=== PATIENT | female | born 1970 | race Caucasian/White ===

== ENCOUNTER 2017-07-11 17:22 | Emergency (ER) | payer OTHER ==
[2017-07-11 17:26] VITALS: BP 100/64; TEMP 97.7; O2SAT 98
[2017-07-11 17:28] VITALS: BMI 33.2
[2017-07-11 17:31] VITALS: PULSE 78; RESP 18
--- NOTE | 2017-07-11 17:43 | ED PDOC ---
Arrival/HPI - General Chief Complaint: Upper Extremity Problem/Injury Time Seen by Provider: 07/11/17 17:26 Historian: Patient - History of Present Illness Narrative History of Present Illness (Text): 07/11/17 17:40 46yo female with history of chronic lower back pain and right arm pain present with complaint of lower back pain and right shoulder pain. She reports lower back pain secondary to LS stenosis. Pain is typical of her previous pain. States she was getting epidural injection and PT while in [place]. she has been here for 3months now without medication. Pain is worse with right arm abduction and back pain with movement, flexion. She denies abdominal pain, urinary/fecal incontinence, chest pain, focal weakness, saddle anesthesia, tearing/ripping upper back pain, urinary symptoms, any other complaint. Past Medical History - Provider Review Nursing Documentation Reviewed: Yes - Cardiac Hx Cardiac Disorders: No - Pulmonary Hx Respiratory Disorders: Yes Hx Asthma: Yes - Neurological Hx Neurological Disorder: No - HEENT Hx HEENT Disorder: No - Renal Hx Renal Disorder: No - Endocrine/Metabolic Hx Endocrine Disorders: No - Hematological/Oncological Hx Blood Disorders: No - Integumentary Hx Dermatological Disorder: No - Musculoskeletal/Rheumatological Hx Musculoskeletal Disorders: Yes - Gastrointestinal Hx Gastrointestinal Disorders: No - Genitourinary/Gynecological Hx Genitourinary Disorders: No - Psychiatric Hx Psychophysiologic Disorder: No Hx Substance Use: No - Surgical History Hx Cholecystectomy: Yes Family/Social History - Physician Review Nursing Documentation Reviewed: Yes Family/Social History: Unknown Family HX Smoking Status: Never Smoked Hx Alcohol Use: No Hx Substance Use: No Allergies/Home Meds Allergies/Adverse Reactions: Allergies shellfish derived Allergy (Verified 07/11/17 17:26) ANAPHYLAXIS Home Medications: Home Meds Medication Instructions Recorded Confirmed No Known Home Med 07/11/17 07/11/17 Review of Systems - Physician Review All systems were reviewed & negative as marked: Yes - Review of Systems Constitutional: Normal Eyes: Normal ENT: Normal Respiratory: Normal Cardiovascular: Normal Gastrointestinal: Normal Genitourinary Female: Normal Musculoskeletal: Arthralgias (right shoulder pain), Back Pain Skin: Normal Neurological: Normal Endocrine: Normal Hemo/Lymphatic: Normal Psychiatric: Normal Physical Exam Vital Signs Reviewed: Yes Vital Signs Temp Pulse Resp BP Pulse Ox 07/11/17 17:28 97.7 F 78 18 100/64 98 07/11/17 17:26 97.7 F 76 19 100/64 98 Temperature: Afebrile Blood Pressure: Normal Pulse: Regular Respiratory Rate: Normal Appearance: Positive for: Well-Appearing, Non-Toxic, Comfortable Pain Distress: None Mental Status: Positive for: Alert and Oriented X 3 - Systems Exam Head: Present: Atraumatic, Normocephalic Pupils: Present: PERRL Extroacular Muscles: Present: EOMI Conjunctiva: Present: Normal Mouth: Present: Moist Mucous Membranes Neck: Present: Normal Range of Motion Respiratory/Chest: Present: Clear to Auscultation, Good Air Exchange. No: Respiratory Distress, Accessory Muscle Use Cardiovascular: Present: Regular Rate and Rhythm, Normal S1, S2. No: Murmurs Abdomen: Present: Normal Bowel Sounds. No: Tenderness, Distention, Peritoneal Signs Back: No: CVA Tenderness, Midline Tenderness, Paraspinal Tenderness, Pain with Leg Raise Upper Extremity: Present: NORMAL PULSES, Tenderness (Right AC joint), Neurovascularly Intact. No: Cyanosis, Edema, Normal ROM (Limited on abdution up to [address] secondary to pain), Swelling Lower Extremity: Present: Normal Inspection. No: Edema Neurological: Present: GCS=15, CN II-XII Intact, Speech Normal, Motor Func Grossly Intact Skin: Present: Warm, Dry, Normal Color. No: Rashes Psychiatric: Present: Alert, Oriented x 3, Normal Insight, Normal Concentration Medical Decision Making ED Course and Treatment: 07/11/17 17:47 46yo female in ED with c/o Lower back pain and right arm pain. She notes that pain is similar to her previous pain. she was ambulatory with normal gait and neurologically intact. Pt was treated with Toradol and Valium in ED she will be reassess Both her and the son was strongly advised to f/u with a pain management for management of her chronic pain. She was referred to Dr. Ocasio. - Medication Orders Current Medication Orders: Discontinued Medications Diazepam (Valium) 5 mg PO ONCE ONE PRN Reason: Protocol Stop: 07/11/17 17:40 Last Admin: 07/11/17 17:59 Dose: 5 mg Ketorolac Tromethamine (Toradol) 60 mg IM STAT STA Stop: 07/11/17 17:40 Last Admin: 07/11/17 17:59 Dose: 60 mg MAR Pain Assessment Document 07/11/17 17:59 (Rec: 07/11/17 17:59 [id number]) Pain Reassessment Is this a pain reassessment? Yes Sleep Is patient sleeping during reassessment? No Presence of Pain Presence of Pain Yes Pain Scale Used Pain Scale Used Numeric Location Left, Right or Bilateral Right Pain Location Body Site Shoulder Description Description Constant Intensity of Pain at present 8 Pain Behavior Crying Guarding Irritability Grasping Site Aggravating Factors ADL's Changing Position Exercise/Activity IM Administration Charges Document 07/11/17 17:59 (Rec: 07/11/17 17:59 [id number]) Injection Site MAR Injection Site Right Deltoid Charges for Administration # of IM Administrations 1 Disposition/Present on Arrival - Present on Arrival Any Indicators Present on Arrival: No History of DVT/PE: No History of Uncontrolled Diabetes: No Urinary Catheter: No History of Decub. Ulcer: No History Surgical Site Infection Following: None - Disposition Have Diagnosis and Disposition been Completed?: Yes Diagnosis: Chronic back pain, Arm pain Disposition: HOME/ ROUTINE Disposition Time: 18:00 Patient Plan: Discharge Condition: STABLE Discharge Instructions (ExitCare): Chronic Back Pain (ED), Arm Pain (ED) Additional Instructions: Follow up with a pain management Return to ED for any new or worsening symptoms Referrals: Reynaldo Ocasio MD [Staff Provider] - Follow up with primary Forms: [employer] (Thai)
== END 2017-07-11 18:14 | disposition home or self-care (01) ==
LOC: ED 17:22
DX: G89.29 Other chronic pain (principal); M54.5 Low back pain; M79.601 Pain in right arm
CPT/HCPCS: 96372; 99284; J1885